=== PATIENT | female | born 2000 | race Caucasian/White ===

== ENCOUNTER 2024-08-21 16:40 | Emergency (ER) | payer OTHER, SELFPAY ==
--- NOTE | 2024-08-21 16:55 | ED.BACK ---
HPI - Back Pain/Injury General Chief Complaint: Skin/Abscess/Foreign Body Stated Complaint: r side pain Time Seen by Provider: 08/21/24 18:27 Source: patient, RN notes reviewed and old records reviewed Mode of arrival: ambulatory Limitations: no limitations History of Present Illness ED Provider: Caridad Zepeda PA-C HPI Narrative: 24 yo female presents to the ER for evaluation of an itchy, painful rash on her lower back that spread to her face. seen at her doctor yesterday and treated for an allergic reaction w/ steroids, hydroxyzine with improvement. reports right side of her body is feeling squeezed, itching, burning sensation and right sided throat tightness with white dots on the neck. she feels like the right side of her neck is bulging out. no difficulty swallowing, no facial swelling, neck swelling, SOB, wheezing. no recent hiking, tick bites or spending times outside. no fevers. rash is waxing and waning. MD elicited complaint: back pain and other (rash) Related Data Allergies Allergy/AdvReac Type Severity Reaction Status Date / Time No Known Allergies Allergy Verified 08/21/24 17:00 Review of Systems Review of Systems: Yes all other systems are reviewed and are negative [facility] Social History Social History Advance Directives: No Advance Directives Information Provided: No Do you have a plan to hurt others: No Plan Physical Exam Vital Signs: Vital Signs: Last Vital Signs Temp 97.5 F 08/21/24 18:40 Pulse 88 08/21/24 18:40 Resp 16 08/21/24 18:40 BP 122/79 08/21/24 18:40 Pulse Ox 99 08/21/24 18:40 O2 Del Method Room Air 08/21/24 18:40 BMI result Body Mass Index 16.8 Appearance: Alert. Oriented X3. No acute distress. anxious Head: normocephalic, atraumatic. Eyes: Pupils equal, round and reactive to light. ENT: Pharynx normal. No tonsillar swelling or exudate. Neck: Normal inspection. Neck supple. no swelling, no LAD. trachea midline CVS: Normal heart rate and rhythm. Pulses normal. Respiratory: No respiratory distress. Breath sounds normal. Abdomen: thin, Soft and nontender. +BS x4 Skin: Skin warm and dry. Normal skin color. Normal skin turgor. 2 small pustules, tender, on the lower back. a few small white raised lesions on the right side of the neck, Extremities: No lower extremity edema. No joint swelling. Neuro/psych: Oriented X 3. No motor deficit. No sensory deficit. CN II-XII intact. Normal speech and cognition. Medical Decision Making Medical Decision Making [facility] Narrative: 24 yo female presenting to the ER for evaluation of a waxing and waning painful and itchy rash on the right side of her body that started yesterday and new right sided neck pressure exam is benign. no neck swelling. rash is minimal. improving with steroids. she reports no improvement last night with benadryl labs today are encouraging with no leukocytosis, normal inflammatory markers. comfortable with discharge home with continuation of prednisone, atarax. 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 encouraged f/u with PCP Differential Diagnosis Differential Diagnoses: The differential diagnosis associated with the presentation includes anxiety, contact dermatitis, shingles, viral infection, tick borne illness, allergic reaction Lab Data [facility] Lab Attestation statement: I reviewed the patient's lab results. no leukocytosis, normal electrolytes 08/21/24 17:24 10 17:24 Labs: Lab Results 08/21/24 Range/Units 17:24 WBC 7.5 (4.8-10.8) X10*3/uL RBC 4.82 (4.20-5.50) X10*6/uL Hgb 14.6 (12.0-16.0) g/dl Hct 41.8 (37.0-47.0) % MCV 86.7 (80.0-98.0) fL MCH 30.3 (27.0-33.0) pg MCHC 34.9 (31.0-35.0) g/dl RDW 12.6 (11.0-16.0) % Plt Count 246 (160-400) X10*3/uL MPV 9.1 L (9.4-12.3) fL Immature Gran % (Auto) 0.3 (0.0-0.4) % Neut % (Auto) 91.9 H (45-73) % Lymph % (Auto) 6.2 L (20-40) % Walsh % (Auto) 1.6 L (2-11) % Eos % (Auto) 0.0 (0-4) % Baso % (Auto) 0.0 (0-2) % Lymph # (Auto) 0.5 L (1.2-4.9) X10*3/uL Walsh # (Auto) 0.1 (0.1-1.2) X10*3/uL Eos # (Auto) 0.0 (0.0-0.4) X10*3/uL Baso # (Auto) 0.0 (0.0-0.2) X10*3/uL Abs Immat Gran (auto) 0.02 (0.00-0.03) X10*3/uL Absolute Neuts (auto) 6.9 (2.0-8.3) x10*3/uL Absolute Nucleated RBC 0.000 (0.0-0.012) X10*3/uL Nucleated RBC % (auto) 0.0 (0.0-0.2) /100WBC Smear Tech's Comments VERIFIED ESR 2 (0-20) MM/HR Sodium 141 (135-145) mmol/L Potassium 3.9 (3.3-5.1) mmol/L Chloride 107 (96-108) mmol/L Carbon Dioxide 27 (22-29) mmol/L Anion Gap 11 L (12-20) BUN 22 H (9-16) mg/dL Creatinine 0.75 (0.5-1.4) mg/dL Estim Creat Clear Calc 77.9 Estimated GFR > 60 Random Glucose 130 H (60-115) mg/dL Calcium 10.2 (8.4-10.2) mg/dL Magnesium 1.7 (1.6-2.6) mg/dL Total Bilirubin 0.7 (0.0-1.0) mg/dL Direct Bilirubin 0.3 (0.0-0.5) mg/dL AST 15 (5-31) U/L ALT 15 (0-31) U/L Alkaline Phosphatase 33 L (39-117) U/L C-Reactive Protein < 0.04 (< or = 0.50) mg/dL Total Protein 7.3 (6.5-8.0) g/dL Albumin 4.7 (3.5-5.0) g/dL Monoscreen Negative (Negative) External Record Review External record reviewed: Office record and Outpatient record Prescription Management I considered prescription management with: Antiviral and Antibiotic Critical Care Time Critical Care Time Critical Care Time: No Discharge Plan Discharge Clinical Impression: Dermatitis Patient Disposition: Home, Self-Care Instructions: Dermatitis (ED) Additional Instructions: Your lab workup today was reassuring. Recommend continuing the previously prescribed medications including prednisone, hydroxyzine, loratadine. Follow-up with your doctor. If you develop new or worsening symptoms call 911 or come back to the ER for further evaluation. Discharge Date/Time: 08/21/24 18:41 Print Language: Bel[place]ian
[2024-08-21 16:59] VITALS: BP 134/84; PULSE 97; RESP 16; TEMP 36.4; O2SAT 99; BMI 16.8
[2024-08-21 17:31] LABS: Hematocrit 41.8 % (37.0-47.0); Hemoglobin 14.6 g/dl (12.0-16.0); Imm Gran Abs Auto 0.02 X10*3/uL (0.00-0.03); Imm Gran Pct Auto 0.3 % (0.0-0.4); Lymphocytes Absolute Auto 0.5 X10*3/uL (1.2-4.9); Lymphocytes Percent Auto 6.2 % (20-40); MANUAL DIFF FLAG SCAN; Mean Corpuscular HGB Conc 34.9 g/dl (31.0-35.0); Mean Corpuscular Hemoglobin 30.3 pg (27.0-33.0); Mean Corpuscular Volume 86.7 fL (80.0-98.0); Mean Platelet Volume 9.1 fL (9.4-12.3); Monocytes Absolute Auto 0.1 X10*3/uL (0.1-1.2); Monocytes Percent Auto 1.6 % (2-11); Neutrophils Absolute Auto 6.9 x10*3/uL (2.0-8.3); Neutrophils Percent Auto 91.9 % (45-73); Platelet Count 246 X10*3/uL (160-400); Red Blood Count 4.82 X10*6/uL (4.20-5.50); Red Cell Distribution Width 12.6 % (11.0-16.0); SCAN SMEAR FLAG 1; White Blood Count 7.5 X10*3/uL (4.8-10.8)
[2024-08-21 17:47] LABS: Alanine Aminotransferase 15 U/L (0-31); Albumin Level 4.7 g/dL (3.5-5.0); Alkaline Phosphatase 33 U/L (39-117); Anion Gap 11 (12-20); Aspartate Amino Transferase 15 U/L (5-31); Bilirubin Direct 0.3 mg/dL (0.0-0.5); Bilirubin Total 0.7 mg/dL (0.0-1.0); Blood Urea Nitrogen 22 mg/dL (9-16); C Reactive Protein < 0.04 mg/dL (< or = 0.50); Calcium 10.2 mg/dL (8.4-10.2); Carbon Dioxide 27 mmol/L (22-29); Chloride 107 mmol/L (96-108); Creatinine Clr Calc Pharmacy 77.9; Estimated Glomerular Filt Rate > 60; Glucose Random 130 mg/dL (60-115); Magnesium 1.7 mg/dL (1.6-2.6); Potassium 3.9 mmol/L (3.3-5.1); Sodium 141 mmol/L (135-145); Total Protein 7.3 g/dL (6.5-8.0)
[2024-08-21 18:01] LABS: Monotest Negative (Negative)
[2024-08-21 18:04] LABS: SLIDE REVIEW VERIFIED
[2024-08-21 18:17] LABS: Erythrocyte Sedimentation Rate 2 MM/HR (0-20)
[2024-08-21 18:40] VITALS: BP 122/79; PULSE 88; RESP 16; TEMP 36.4; O2SAT 99
== END 2024-08-21 18:41 | disposition home or self-care (01) ==
PROVIDERS: Physician Assistant; Emergency Provider Internal Medicine
DX: L30.9 Dermatitis, unspecified (principal); M54.50 Low back pain, unspecified; Z79.899 Other long term (current) drug therapy
CPT/HCPCS: 36415; 80048; 80076; 83735; 85025; 85652; 86140; 86308; 99282; 99283